=== PATIENT | female | born 1970 | race Caucasian/White ===

== ENCOUNTER 2016-09-20 11:06 | Emergency (ER) | payer SELFPAY ==
[2016-09-20] MEDS ORDERED: BOOSTRIX IM ONE (13:11)
--- NOTE | 2016-09-20 13:16 | Emergency Department Report ---
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 PT states something unknown bit her wrist. PT states that the site is itching. 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 MD Complaint: bug bite -: Sudden, hour(s) Time: 08:00 Location: upper extremity Severity scale (0 -10): 0 Quality: other (itching. ) Consistency: constant, other (gradually worsening ) Associated Symptoms: denies: chest pain, cough, nausea/vomiting Treatments Prior to Arrival: none - Related Data Allergies Allergy/AdvReac Type Severity Reaction Status Date / Time No Known Allergies Allergy Unverified 09/20/16 12:03 ED Review of Systems ROS: Stated complaint: POSS INSECT BITE Other details as noted in HPI Comment: All other systems reviewed and negative Constitutional: see HPI. denies: chills, fever Genitourinary: other (lmp 3-10-17 ). denies: abnormal menses Skin: rash, change in color, pruritus (local ) Neurological: denies: headache, weakness ED Past Medical Hx - Past Medical History Previous Medical History?: No - Surgical History Past Surgical History?: No - Family History Family history: hypertension, other (CVA ) - Social History Smoking Status: Never Smoker Substance Use Type: Alcohol ED Physical Exam - General Limitations: No Limitations General appearance: alert, in no apparent distress - Head Head exam: Present: atraumatic, normocephalic - Eye Eye exam: Absent: conjunctival injection - ENT ENT exam: Present: normal exam - Neck Neck exam: Present: normal inspection, full ROM - Respiratory Respiratory exam: Present: normal lung sounds bilaterally. Absent: respiratory distress - Cardiovascular Cardiovascular Exam: Present: regular rate, normal rhythm, normal heart sounds - Extremities Exam Extremities exam: Present: full ROM, normal capillary refill, other (L wrist with three small bite sites with localized redness and swelling, no warmth ). Absent: tenderness - Back Exam Back exam: Present: normal inspection, full ROM - Neurological Exam Neurological exam: Present: alert, oriented X3, normal gait - Psychiatric Psychiatric exam: Present: normal affect, normal mood - Skin Skin exam: Present: warm, dry, erythema. Absent: urticaria ED Course Vital Signs 09/20/16 12:00 Temperature 98 F Pulse Rate 74 Respiratory 16 Rate Blood Pressure 147/106 O2 Sat by Pulse 100 Oximetry - Reevaluation(s) Reevaluation #1: 09/20/16 13:17 spoke with pt about her local reaction to insect bite and treatment. Also spoke with pt about her bp. PT denies any hx of htn. PT's mother did have htn , passed of CVA. PT states her last bp check was 1-2 years ago and her bp was "okay" PT was given verbal instructions on the importance of following up with PCP for BP recheck. - Pulse Oximetry Interpretation Digit-Finger Initial Pulse Oximetry Readin Actions Taken: none ED Medical Decision Making - Differential Diagnosis local reacation, puncture wound, cellulitis Critical care attestation.: If time is entered above; I have spent that time in minutes in the direct care of this critically ill patient, excluding procedure time. ED Disposition Clinical Impression: Elevated blood pressure Insect bite of wrist with local reaction Qualifiers: Encounter type: initial encounter Laterality: left Qualified Code(s): S60.862A - Insect bite (nonvenomous) of left wrist, initial encounter; W57.XXXA - Bitten or stung by nonvenomous insect and other nonvenomous arthropods, initial encounter Disposition: DISCHARGED TO HOME OR SELFCARE Is pt being admited?: No Does the pt Need Aspirin: No Condition: Stable Instructions: Insect Bite or Sting (ED), Chronic Hypertension (ED) Additional Instructions: No driving or ETOH after taking Vistaril Follow up with PCP in 3-5 days for BP recheck Referrals: [facility] [Outside] - 3-5 Days PRIMARY CARE, [Primary Care Provider] - 3-5 Days Time of Disposition: 13:22
[2016-09-20 13:52] VITALS: BP 145/102
== END 2016-09-20 13:40 | disposition home or self-care (01) ==
LOC: ED 11:06
DX: S60.862A Insect bite (nonvenomous) of left wrist, initial encounter (principal); R03.0 Elevated blood-pressure reading, without diagnosis of hypertension; W57.XXXA Bitten or stung by nonvenomous insect and other nonvenomous arthropods, initial encounter; Y93.89 Activity, other specified; Y99.9 Unspecified external cause status; Y92.89 Other specified places as the place of occurrence of the external cause
CPT/HCPCS: 90471; 90715